=== PATIENT | female | born 1960 | race Two or more races ===

== ENCOUNTER 2016-06-04 14:49 | Inpatient (IN) | payer SELFPAY ==
[~2016-06-04] VITALS: Ht 157.5 cm; Wt 62.1 kg
--- NOTE | ~2016-06-04 | ER ---
PATIENT'S NAME: [facility] AGE: 56 Y [address] ROOM: [place] [address] LOCATION: GPCU ADMIT DATE: 06/04/2016 ER/Outpatient Report DISCHARGE DATE: FAMILY PHYSICIAN: PHYSICIAN, NO ATTENDING PHYSICIAN: Ej CROSS Admission date and time documented on the medical record. I saw the patient at 1500 hours. CHIEF COMPLAINT: Mid anterior chest pain. HISTORY OF PRESENT ILLNESS: This patient is a 56-year-old female who about 30 minutes prior to admission to the emergency room was walking in the house, developed mid anterior chest pain. The chest pain was nonradiating. She had some shortness of breath. She had pain with deep inspiration. She did not get diaphoretic. Did get a little nauseated and had no vomiting. Brought to the emergency room by paramedics by ambulance for evaluation. On arrival, her pain was a 6/10. Continued to have the mid substernal chest pain. Palpation of the anterior chest stimulated her chest pain. No back pain. No abdominal pain. No nausea, vomiting, diarrhea, or urinary complaints. No lightheadedness, dizziness, syncope, or near syncope. No fall or trauma. Did have a recent upper respiratory infection. No headache; eyes ears, nose, throat, neck, or spine pain. No joint or muscle swelling, redness, or pain. No skin eruptions or rash. No history of neuro changes or psych issues. Does have a history of spg-emzwjgj-yafrqlezc diabetes mellitus. HOME MEDICATIONS: See attached medication list. ALLERGIES: NONE. SOCIAL HISTORY: Nonsmoker and nondrinker. SIGNIFICANT PAST MEDICAL HISTORY: Dyslipidemia, gastroesophageal reflux, and tvy-vnaeovg-xjrekpbqz diabetes mellitus. REVIEW OF SYSTEMS: All systems reviewed by me are negative with the exception of those discussed in the history of present illness. PATIENT'S NAME: [facility] AGE: 56 Y [address] ROOM: [place] [address] LOCATION: GPCU ADMIT DATE: 06/04/2016 ER/Outpatient Report DISCHARGE DATE: FAMILY PHYSICIAN: PHYSICIAN, NO ATTENDING PHYSICIAN: Ej CROSS PHYSICAL EXAMINATION: VITAL SIGNS: Temperature 98.3 tympanic, pulse 100, respirations 16, blood pressure 162/86, and O2 saturation on room air is 97%. [place] Coma Scale was 15. HEENT: Head: Normocephalic. No abrasion, contusion, laceration, or swelling of scalp or face. Eyes: Extraocular muscles intact. PERRL. Ears: Clear TMs bilaterally. Nose and Throat: Clear. Mucous membranes moist. Teeth and jaw intact. NECK: No nuchal rigidity. No thyromegaly or cervical adenopathy. No tenderness. SPINE: Nontender. No deformity. LUNGS: Clear. Good air flow. No rales, rhonchi, or wheezes. HEART: Regular. Pulses are palpable. The patient has tenderness to palpation across her anterior chest wall reproduces her pain. ABDOMEN: Soft, nondistended, nontender. Good bowel tones. No organomegaly or abnormal mass palpable. No CVA tenderness. EXTREMITIES: Without peripheral edema, cyanosis, or deformity. NEUROVASCULAR: Intact. SKIN: Clear. No skin eruptions or rash. DIAGNOSTIC DATA: EKG x2 showed sinus rhythm, though with some inferior changes, age undetermined. No arrhythmia. No other ischemic changes. Krqse-dt-yffg cardiac enzymes were normal x2 2 hours apart. CPK was normal x2 2 hours apart. Sedimentation rate was normal at 16. PTT was 26, pro-time is 9.6 with [place] 0[place] [address], 58 segs, 33 lymphs, 5 monos, 2 eos, 1 baso; hemoglobin is 14.3, hematocrit 42.4, platelet count 309,000. Procalcitonin was less than 0.05. Venous pH was 7.46. Lactate was 5.1. Serum ketones were negative. D-dimer was 0.3. CMS was normal except for an elevated glucose of 325, magnesium 1.8. CRP was 0.36. ProBNP was less than 30. Chest x-ray showed no acute infiltrate. We will review x-ray with the radiologist. EMERGENCY DEPARTMENT COURSE: I did start the patient on IV nitroglycerin drip which helped bring her pain down to about 1 to 2 over 10. Also gave her morphine 2 mg IV and 4 baby aspirin orally. IMPRESSION: 1. Mid substernal chest pain, nonradiating, etiology uncertain, but suggestive of unstable angina. 2. Insulin-dependent diabetes mellitus. 3. Gastroesophageal reflux. 4. Dyslipidemia. PATIENT'S NAME: DYLAN CRUZ [facility] AGE: 56 Y [address] ROOM: [place] [address] [facility] ADMIT DATE: 06/04/2016 ER/Outpatient Report DISCHARGE DATE: FAMILY PHYSICIAN: PHYSICIAN, NO ATTENDING PHYSICIAN: Ej CROSS PLAN: I did discuss the patient with Dr. Carrie Ortez. We will admit the patient to PCU for further evaluation of her cardiac status. Discussion ensued with the patient concerning my findings and recommendations, she understands. Accumulated critical care time, 30 minutes. MD CHRISTIANE HERNANDEZ/miguel /[id number] d: 06/04/16 2318 t: 06/05/16 0612, OUTPATIENT REPORT
--- NOTE | ~2016-06-04 | CON ---
PATIENT'S NAME: [facility] AGE: 56 Y [address] ROOM: [place] [id number] LOCATION: GPCU ADMIT DATE: 06/04/2016 Consultation DISCHARGE DATE: 06/06/2016 FAMILY PHYSICIAN: PHYSICIAN, NO ATTENDING PHYSICIAN: Carey Pagan REFERRING PHYSICIAN: Bhargav Lane MD REFERRING PHYSICIAN: Dr. Patino. HISTORY OF PRESENT ILLNESS: This is a 56-year-old female with a history of diabetes mellitus. She was admitted to the emergency room after experiencing sudden onset of severe chest discomfort and syncope. Over the past 2 months, she has had 3 episodes of similar chest pain with presyncopal episodes, but this is the first time she passed out. It was witnessed by her son, who reports that she did not have any tonic or clonic movement, and there was no loss of bowel or bladder. The patient has been complaining of shortness of breath with activity as well as increased fatigue. She has mild orthopnea, PND, and reports that she can feel some palpitation. She complains of increased fatigue. PAST MEDICAL HISTORY: Hyperlipidemia and diabetes mellitus. PAST SURGICAL HISTORY: Positive for cholecystectomy. ALLERGIES: NONE TO MEDICATION. CURRENT MEDICATIONS: 1. Glimepiride 2 mg daily. 2. Metformin 1000 mg b.i.d. 3. Lovastatin 20 mg daily. 4. Amitriptyline 10 mg daily. FAMILY HISTORY: Father had coronary artery disease. Mother had diabetes mellitus. 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 She has never smoked and denies any alcohol use. REVIEW OF SYSTEMS: GENERAL: She complains of fatigue. HEAD: No history of headache. PATIENT'S NAME: [facility] AGE: 56 Y [address] ROOM: [address] [address] LOCATION: GPCU ADMIT DATE: 06/04/2016 Consultation DISCHARGE DATE: 06/06/2016 FAMILY PHYSICIAN: PHYSICIAN, NO ATTENDING PHYSICIAN: Carey Pagan EYES: No blurred vision or double vision. EARS: No problems with hearing. NOSE: No epistaxis or rhinorrhea. MOUTH: No gingival bleeding. THROAT: Denies sore throat, hoarseness, or difficulty swallowing. PULMONARY: Denies cough or hemoptysis. GASTROINTESTINAL: Negative for nausea, vomiting, or diarrhea. No melena or hematochezia. GENITOURINARY: Positive for frequent urination. No problems with burning with urination. No history of kidney stones or urinary tract infection. MUSCULOSKELETAL: No complaints of arthralgias or myalgias. NEUROLOGIC: She denies numbness or tingling in the upper or lower extremities. PHYSICAL EXAMINATION: VITAL SIGNS: She is 5 feet 2 inches, weighs 139, her blood pressure is 140/98, heart rate 80, regular sinus rhythm. SKIN: Warm, dry, and pink. HEENT: Pupils equal, round, and react briskly. NECK: Soft and supple. No lymphadenopathy. No thyromegaly. JVD is flat. LUNGS: Sounds are clear anteriorly and posteriorly. There is no tenderness noted on palpation. CV: Regular with a normal S1 and S2 without murmur. ABDOMEN: Soft. Bowel sounds are present. EXTREMITIES: Show no peripheral edema. LABORATORY DATA: Hemoglobin was 14.3, white count 10.1, cardiac enzymes were negative x4. BUN was 16, creatinine 0.8, sodium 136, potassium 3.7. Magnesium was 1.8. Her hemoglobin A1c was 12.8. Cholesterol 159, triglycerides were 309, HDL 39, LDL was 59. ASSESSMENT: 1. Atypical chest pain. We will plan on a stress test today. 2. Fatigue. We will check a TSH. 3. Hyperlipidemia. She will continue current statin therapy. 4. Diabetes mellitus. She will continue to follow up with the hospitalist. The assessment and plan, history of present illness, and physical exam are per Dr. Lane. Further recommendations will be forthcoming once we get the report of the stress test. HUMZA MICHEL APRN FOR BHARGAV LANE MD PATIENT'S NAME: SIDDHARTH DÍAZ [facility] AGE: 56 Y [address] ROOM: [place] [address] LOCATION: GPCU ADMIT DATE: 06/04/2016 Consultation DISCHARGE DATE: 06/06/2016 FAMILY PHYSICIAN: ADITYA DANIEL ATTENDING PHYSICIAN: Carey Pagan TGP/modl /[id number] d: 06/06/16 2143 t: 06/29/16 0920, CONSULTATION REPORT
--- NOTE | ~2016-06-04 | ECHO ---
Transthoracic Echocardiography Report (TTE) Demographics Patient Name SIDDHARTH DÍAZ, Date of Study 06/05/2016 DYLAN Patient Number [id number] Visit Number [id number] Date of 1960 Room Number G6307 Accession Number [id number] Gender Female Age 56 year(s) Referring Carey Pagan Swatch Folder Yordy Castellano Physician RVT Physician Interpreting Celeste Durant Machine Whitener Physician Supervising Ordering Physician Carey Pagan MD/MLP Nurse Stress Backend Tester Conclusions Contractility Score Summary Normal Left Ventricular contractility was noted. Summary The estimated left ventricular ejection fraction is 55-60%. Mild concentric left ventricular hypertrophy. Diastolic assessment reveals Grade I diastolic dysfunction. IVC not visualized due to poor subcostal window. Possible trivial pericardial effusion. Procedure Type of Study TTE procedure:2D Echocardiogram, M-Mode, Doppler , Color Doppler. Procedure Date Date: 06/05/2016 Start: 07:34 AM Study Location: Inpatient Portable Technical Quality: Adequate visualization Indications:Chest pain. Appropriate Use Criteria: 9 Patient Status: Routine HR: 73 bpm M-Mode/2D Measurements LV Diastolic Dimension: 3.7 cm LV Systolic Dimension: 2.57 cm LV Septum Diastolic: 1.46 cm LV PW Diastolic: 1.21 cm AO Root Dimension: 2 cm Cardiac Output: 3.52 l/min AV Cusp Separation: 1.6 cm RV Diastolic Dimension: 2.16 cm LVOT: 1.9 cm LVOT VTI: 17 cm RV Base: 3.06 cm LV Stroke volume: 48.18 ml RV Length: 5.06 cm TAPSE: 2 cm TDI-S': 11.3 cm/s Doppler Measurements AV Peak Velocity: 1.11 m/s MV Peak E-Wave: 0.75 m/s AV Peak Gradient: 4.93 mmHg MV Peak A-Wave: 1 m/s AV Mean Gradient: 3 mmHg MV E/A Ratio: 0.75 LVOT Peak Velocity: 0.79 m/s MV P1/2t: 68 msec TR Gradient:13.69 mmHg PV Peak Velocity: 0.71 m/s PV Peak Gradient: 2.02 mmHg E' Septal Velocity: 0.06 m/s A' Septal Velocity: 0.1 m/s E' Lateral Velocity: 0.09 m/s A' Lateral Velocity: 0.13 m/s Findings Left Ventricle Mild concentric left ventricular hypertrophy. Diastolic assessment reveals Grade I diastolic dysfunction. Right Ventricle Normal right ventricle structure and function. Left Atrium Normal left atrial size. Right Atrium IVC not visualized due to poor subcostal window. Mitral Valve Normal mitral valve structure and function. Aortic Valve Normal aortic valve structure and function. Tricuspid Valve Trivial tricuspid regurgitation by color Doppler. Pulmonic Valve Normal pulmonic valve structure and function. Pericardial Effusion Possible trivial pericardial effusion. Miscellaneous Visualized portions of the aortic root and ascending aorta appear normal in size. Pleural Effusion No evidence of pleural effusion. Contractility Score LV regional wall motion:(0-Non visualized 1-Normal 2-Hypokinesis 3-Akinesis 4-Dyskinesis 5-Aneurysm) Signature dtt: Bhargav Alonso (cardio) dtd: 06/05/16 0734 Physician Self Edit
--- NOTE | ~2016-06-04 | HP ---
[facility] 56 [facility] [address] ROOM: [place] [address] LOCATION: GPCU ADMIT DATE: 06/04/2016 History & Physical DISCHARGE DATE: FAMILY PHYSICIAN: PHYSICIAN, NO ATTENDING PHYSICIAN: Ej CROSS DATE OF SERVICE: CHIEF COMPLAINT: Chest pain. HISTORY OF PRESENT ILLNESS: The patient is a 56-year-old female with past medical history of diabetes mellitus type 2, hyperlipidemia, who presents here with chest pain. The patient reports that around 2:00 p.m. this morning she felt substernal chest pain which she describes as pressure-like, substernal in location, associated with shortness of breath and nausea, and radiating to her right upper extremity. The patient rated the pain 10/10 during that episode. The patient went to her nephew's room to tell him about her symptoms and was found to have syncope. According to her nephew, the patient came into his room opened and had a sudden fall and was unresponsive for a few minutes. The patient denies any generalized tonic-clonic shaking, urinary and bladder incontinence. The patient was able to regain her consciousness and was brought here via EMS for further workup. The patient continued to have chest pain in the emergency department and was given nitroglycerin with adequate improvement of symptoms. The patient was started on nitroglycerin drip, now currently chest pain-free. The patient denies having similar symptoms in the past. The patient denies fever, chills, abdominal pain, vomiting, diarrhea, headache, visual change, and meningismus sign. The patient is a Georgian-speaking patient. Supply Aide was used during interview. PAST MEDICAL HISTORY: Hyperlipidemia and diabetes mellitus type 2. SURGICAL HISTORY: Cholecystectomy. FAMILY HISTORY: Mother has a history of diabetes mellitus and father had coronary artery disease. SOCIAL HISTORY: PAT[facility]: [facility] AGE: 56 Y [address] 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 She denies smoke. She denies use of alcohol. ALLERGIES: NO KNOWN DRUG ALLERGIES. MEDICATION: 1. Glimepiride 2 mg. 2. Metformin 1000 mg b.i.d. 3. Lovastatin 20 mg. 4. Amitriptyline 10 mg. REVIEW OF SYSTEMS: All systems reviewed, all negative except what is stated in the HPI. PHYSICAL EXAMINATION: VITAL SIGNS: Afebrile, blood pressure 149/110, heart rate 96, and saturating 100% on room air. GENERAL APPEARANCE: The patient is alert and oriented, in no acute distress. HEENT: Head: Normocephalic, atraumatic. Eyes: Extraocular muscles intact. Sclerae nonicteric. Nose: No nasal discharge. NECK: No JVD. Supple. CHEST: Clear to auscultation bilaterally. Upon palpation of the chest wall, the patient has some reproducible chest pain. HEART: Tachycardic. No murmurs, rubs, or gallops heard. ABDOMEN: Soft, nontender, nondistended. Bowel sounds present. EXTREMITIES: No edema. SKIN: Warm to touch. [employer] OFFICER: Alert and oriented. Motor and sensory grossly intact. LABORATORY DATA: D-dimer 0.3. Lactate 5.1. BUN of 16, creatinine of 0.8, blood glucose of 325. Troponin times 2 negative. ProBNP less than 30. White blood cell count of 10.1, hematocrit of 42.4, hemoglobin of 14.3, and platelet of 309. EKG: Normal sinus rhythm, Q-waves seen in II, III, and aVF. ASSESSMENT AND PLAN: The patient is a 56-year-old female who presents to our emergency department with typical chest pain and syncope. 1. Unstable angina. The patient presented with typical chest pain and associated with chest pressure, substernal, associated with shortness of breath, nausea, and some atypical presentation of pleuritic pain and reproducible chest pain. However, due to the patient's risk factor of family history; diabetes mellitus; hyperlipidemia; and chest pain, [facility] 56 [facility] [address] ROOM: [place] [address] [facility] ADMIT DATE: 06/04/2016 History & Physical DISCHARGE DATE: FAMILY PHYSICIAN: PHYSICIAN, NO ATTENDING PHYSICIAN: Ej CROSS actually resolving with nitroglycerin drip, we will admit the patient and we will treat the patient as unstable angina. The patient currently on nitroglycerin drip. We will start heparin drip. Before we start heparin drip, we will acquire a CT head as the patient had syncope and had a fall, just want to rule out if there was any head bleeding. If the CT head normal, we will continue with heparin drip. We will start the patient on Lopressor 25 mg b.i.d. Continue nitroglycerin drip. We will change lovastatin to Lipitor 80 mg daily. We will trend troponin x3. Keep the patient on tele monitor. Discussed case with Dr. Alonso with Cardiology to keep the patient n.p.o., and to assess whether the patient needs stress test or coronary angiogram tomorrow. 2. Diabetes mellitus type 2. We will hold metformin currently, and we will start the patient on sliding scale and start 16 units of detemir at nighttime. 3. Hyperlipidemia. We will change lovastatin to high-dose Lipitor. 4. Syncope. Initial workup including EKG and troponin was unremarkable. We will acquire CT head. The patient will have cardiac workup during her stay. D-dimer is negative. We will keep the patient on tele monitor to evaluate for arrhythmia and acquire echocardiogram to further investigate the structural disease. We will follow the patient closely clinically. I personally reviewed the patient's medical record including but not limited to, blood work and radiology report. Total spent with the patient is greater than 70 minutes, more than 50% of the time spent in direct patient care and patient consultation. The case was reviewed with the patient and Cardiology. All questions were answered satisfactorily. We will admit the patient for unstable angina. MD DAVID BUENO/miguel /[id number] D: 052 T: 033 HISTORY & PHYSICAL
--- NOTE | ~2016-06-04 | ER ---
PATIENT'S NAME: DYLAN CRUZ [facility] AGE: 56 Y [address] ROOM: [address] [address] LOCATION: [facility] ADMIT DATE: 06/04/2016 ER/Outpatient Report DISCHARGE DATE: FAMILY PHYSICIAN: PHYSICIAN, NO ATTENDING PHYSICIAN: Ej CROSS ADDENDUM: Dr. Carrie Ortez called back and wanted the hospitalist to take this patient's case. I did talk with Dr. Ybarra and he is going to come down to see the patient and admit the patient to the hospital for further cardiac workup. MD CHRISTIANE HERNANDEZ/miguel /[id number] d: 06/04/16 2350 t: 06/05/16 0614, OUTPATIENT REPORT
--- NOTE | ~2016-06-04 | ESTC ---
Cardiac Perfusion Imaging Demographics Patient Name SIDDHARTH DÍAZ Gender Female DYLAN Patient Number [id number] Race Other Visit Number [id number] Ethnicity or Corporate ID Room Number G6307 Accession Number [id number] Height 62 inches Date of 1960 Weight 139.3 pounds Interpreting Celeste Durant MD Date of study 06/05/2016 Physician Supervising /MARIPOSA Mcdaniel NM Technologist Nova Farmer APRN Ordering Physician Celeste Durant MD Stress plant and maintenance technician Stress ECG Reading Claudia Mcdaniel Nurse Fannie Wilson RN Physician MATT Melchor RN Medications Reviewed with Patient prior to Procedure. Procedure Procedure Type: Nuclear Stress Test:Pharmacological, Lexiscan, Cardiolite Stress Test Procedure Start time: 06/05/2016 09:20 Indications: Chest pain. Risk Factors The patient risk factors include:former tobacco use, family history of premature CAD, orally-treated diabetes mellitus, last creatinine: 0.8 mg/dl, dyslipidemia and ( years not smokin). Conclusions Summary Cardiolite SPECT images demonstrate homogenous uptake of radioactive tracer without inducible reversible defect and no underlying fixed defect. Normal TID upon gross inspection. Normal left ventricular systolic function without inducible wall motion abnormalities. LVEF was 85% Stress Protocols Resting ECG RSR without ST or T wave changes. Pre-stress physical exam: Edy Taylor APRN Stress Protocol:Pharmacologic Peak HR:75 bpm HR response: Appropriate Peak BP:109/68 mmHg BP response: Appropriate Predicted HR: 164 bpm HR/BP product:8175 % of predicted HR: 46 Reason for termination:Infusion complete ECG Findings No ECG changes suggestive of ischemia. Arrhythmias No rhythm abnormality. Symptoms Nausea. Stress Interpretation Appropriate hemodynamic response to Lexiscan. No significant ST-T wave changes with Lexiscan. ECG portion is negative for ischemia by diagnostic criteria. Stress supervision and interpretation provided by Ailyn Taylor APRN . Imaging Results Summed scores - Summed stress score: 12 - Summed rest score: 4 - Summed difference score: 8 Stress ejection Ejection fraction:83 % EDV :53 ml ESV :9 ml Stroke volume :44 ml LV mass :101 gr Imaging Protocols Rest Stress Isotope:Tc99m Sestamibi IV Isotope: Tc99m Sestamibi IV Isotope dose:9.8 mCi Isotope dose:29.9 mCi Date:06/05/2016 09:05 Date:06/05/2016 10:27 Technique: SPECT Technique: Gated Supine SPECT Supine IV remains in place after procedure. Scan Time:30 minutes post injection Scan Time:45-60 minutes post injection Procedure Medications - Regadenoson (Lexiscan) 0.4 mg IV over 10-15 sec. I.V. 0.4 mg. Medical History Admission Data Admission date: 06/04/2016 Admission Time: 18:43 Hospital Status: Inpatient. Signatures dtt: Bhargav Alonso (cardio) dtd: 06/05/16 0920 Physician Self Edit
[2016-06-04 15:05] LABS: LACTATE 5.1 mEq/L (0.50-1.60)
[2016-06-04 15:07] LABS: BASOPHIL # 0.1 K/uL (0.0-0.2); BASOPHIL % 0.6 %; EOSINOPHIL # 0.2 K/uL (0.0-0.5); EOSINOPHIL % 2.4 %; HEMATOCRIT 42.4 % (33.0-46.0); HEMOGLOBIN 14.3 g/dL (10.0-15.0); IMMATURE GRANULOCYTE # 0.1 K/uL (0.0-0.3); IMMATURE GRANULOCYTE % 0.8 %; LYMPHOCYTE # 3.4 K/uL (0.8-4.0); LYMPHOCYTE % 33.4 %; MCH 28.1 pg (27.0-34.0); MCHC 33.7 gm/dL (32.0-36.5); MCV 83.5 fl (83.0-98.0); MONOCYTE # 0.5 K/uL (0.0-1.0); MPV 10.8 fl (9.4-12.4); NEUTROPHIL # (ANC) 5.9 K/uL (1.8-7.8); NEUTROPHIL % 57.8 %; NRBC % 0 /100WBC (0-0.00); PLATELET COUNT 309 K/uL (150-450); RBC 5.08 M/uL (3.50-5.50); RDW-CV 12.7 % (11.9-14.6); WBC 10.1 K/uL (4.0-11.0)
[2016-06-04 15:17] LABS: INR - (THERAPEUTIC) 0.92 (0.92-1.07); PROTIME 9.6 SECONDS (9.8-11.4); PTT 26 SECONDS (25-32)
[2016-06-04 15:25] LABS: ALBUMIN 3.8 gm/dL (3.5-5.0); ALK PHOS 114 IU/L (33-138); ALT 61 IU/L (12-78); ANION GAP 14.7 (10.0-19.0); AST 27 IU/L (10-40); BLOOD UREA NITROGEN 16 mg/dL (6-24); CALCIUM 8.8 mg/dL (8.5-10.5); CHLORIDE 103 mMol/L (96-110); CO2 22 mMol/L (22-32); CPK 35 IU/L (21-215); CREATININE 0.8 mg/dL (0.5-1.1); ESTIMATED GFR (MDRD EQUATION) > 60; MAGNESIUM 1.8 mg/dL (1.8-2.6); POTASSIUM 3.7 mMol/L (3.7-5.1); SODIUM 136 mMol/L (135-145); TOTAL BILIRUBIN 0.3 mg/dL (0.0-1.5); TOTAL PROTEIN 7.6 g/dL (6.0-8.4)
[2016-06-04 17:26] LABS: CPK 36 IU/L (21-215)
[2016-06-04] MEDS ORDERED: ELAVIL10 MG PO (20:34)
[2016-06-04] MEDS ORDERED: AMARYL2 MG PO (20:34)
[2016-06-04] MEDS ORDERED: MEVACOR20 MG (20:34)
[2016-06-04] MEDS ORDERED: GLUCOPHAGE500 MG PO (20:35)
[2016-06-04] MEDS ORDERED: GLUCOPHAGE1000 MG PO (20:36)
[2016-06-04] MEDS ORDERED: ADVIL200 MG (20:36)
[2016-06-04 22:24] LABS: CPK 31 IU/L (21-215)
--- NOTE | 2016-06-05 02:07 | NUR ---
Patient brought to floor per cart by residential treatment staff. Patient is alert and oriented. She does not speak any Lao. Upon arrival to the room patient has no co chest pain and is on room air. Heparin drip was started in ER and is running at 700units, nitro is running at 10mcg. Family is present at bedside. Patient comes in today with chest pain that started earlier this afternoon, patient also states that she has been quite dizzy today. Patient also admited having a fall today. IV present to right AC.
[2016-06-05 04:14] LABS: CPK 51 IU/L (21-215)
--- NOTE | 2016-06-05 05:25 | NUR ---
Significant Event: VSS, PT AFEBRILE. CONTINUES ON RA WITH SATS IN THE LOW TO MID 90'S. PT DENIES ANY SHORTNESS OF BREATH OR CHEST PAIN THIS SHIFT. NITRO SHUT OFF PER MD ORDER IF SBP WAS LESS THAN 120. HEPARIN RUNNING AT 800 UNITS WITH NEXT PTTHP AT 1000. FAMILY AT BEDSIDE AND TRANSLATE FOR PATIENT. UP TO BATHROOM WITH 1 ASSIST, PT DOES GET DIZZY UPON STANDING. NS RUNNING AT 100ML/HR-TURN OFF AFTER THIS BAG. Follow up:
[2016-06-05 11:30] LABS: CPK 40 IU/L (21-215)
--- NOTE | 2016-06-05 12:19 | NUR ---
Diabetes consult: Patient with Type II diabetes and A1C at 12.8%. The patient reports seeing MATT Hong last week and having her metformin increased. In addition, to metformin the patient takes amaryl at home. The patient denies missing doses and reports having had diabetes education in the patient. The patient has several family members at bedside, and a grandson helps interpret. The grandson was given the diabetes survival skill check list and encouraged to ask the patient the questions on the questionnaire. Will return tomorrow to review the checklist and teach to knowledge deficits. Patient was informed of her risk of developing diabetes complications with an elevated A1C. She was also informed that she is being given a long acting insulin which may need to continue upon dismissal. Will continue to follow.
--- NOTE | 2016-06-05 15:54 | NUR ---
Significant Event:A/O x 3, cooperative with cares. VSS. Was NPO this am for lexiscan, once returned she c/o chest pain but it was worse when lying flat. Gave protonix and tylenol with relief. Up to Bathroom with 1 assist. Gets dizzy when standing. Family at bedside and will translate as needed. Heparin running at 900 units/hr, next PTTHP at 1745. ACHS accuchecks with mild sliding scale. PIV to R) AC infusing Heparin and NS at TKO. Follow up:Waiting for lexiscan report and then determine next plan of care.
--- NOTE | 2016-06-06 04:35 | NUR ---
A/O. VSS. DENIES PAIN. DENIES CHEST PAIN. DIABETIC ED TO SEE TODAY. HEPARIN AT 900 UNITS/HR. POSSIBLE D/C TODAY.
--- NOTE | 2016-06-06 09:00 | NUR ---
Diabetes consult: Patient is being sent home on insulin. She has no insurance and cannot afford Levemir. Discussed treatment with Dr. Fletcher and patient will be placed on nph 9 units twice daily. Patient was given an insulin voucher for five free pens. She was also given a sample of pen needles. The patient reports having testing supplies at home. The patient was instructed on how to use the insulin pen. The timing, dose, storage and rotation of insulin sites was discussed. Hyper and hypoglcyemia treatment and prevention reviewed. Son is present at bedside and interpretting. The patient was able to redemonstrate use of the device without difficulty. She denies any questions or concerns. Dr. Fletcher [facility] the [facility]. Appointment scheduled for 06/15/2016. Patient is to see Dr. Canales on June 12.
[2016-06-06] MEDS ORDERED: ASPIRIN (CHILDR81 MG PO (11:08)
[2016-06-06] MEDS ORDERED: LIPITOR80 MG PO (11:10)
[2016-06-06] MEDS ORDERED: LOPRESSOR25 MG PO (11:20)
[2016-06-06] MEDS ORDERED: HUMULIN N100 UNIT/2 SUB-Q (11:27)
--- NOTE | 2016-06-06 12:14 | NUR ---
DISCHARGE SUMMARY: Patient discharged to home at 1201 with son, [id number], and significant other. Pt VSS. BP 126/69, HR 77, O2 97% RA, temp 98.3. Pt A&Ox3. Education regarding new mediction and diabetic management was provided-pt and family confirms understanding. 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 Supply Clerk contact information provided if needed in future. Follow-up appointments discussed-pt and family confirm understanding. Pt denies dizziness and/or chest pain thorughout shift and at time of dismissal. Right AC PIV was D/C at 1153. Final tele strip ran. Pt and family denies any futher questions/concerns.
== END 2016-06-06 12:25 | disposition disaster alternative care site (69) | DRG 311 ==
LOC: GMED 14:49 → GPCU 18:43
PROVIDERS: Emergency Medicine; ADMIT Internal Medicine
DX: I20.0 Unstable angina (principal); E11.9 Type 2 diabetes mellitus without complications; E78.5 Hyperlipidemia, unspecified; K21.9 Gastro-esophageal reflux disease without esophagitis; Z87.891 Personal history of nicotine dependence; Z23 Encounter for immunization
CPT/HCPCS: A9500; J1644; J2270; J2785; J7030; J7050

== ENCOUNTER → 2016-06-15 | Outpatient (CLI) | payer SELFPAY ==
[~2016-06-15] MED LIST: ADVIL200 MG; AMARYL2 MG PO; ASPIRIN (CHILDR81 MG PO; ELAVIL10 MG PO; GLUCOPHAGE1000 MG PO; GLUCOPHAGE500 MG PO; HUMULIN N100 UNIT/2 SUB-Q; LIPITOR80 MG PO; LOPRESSOR25 MG PO; MEVACOR20 MG
== END | disposition disaster alternative care site (69) ==
LOC: GDIC 10:36
DX: E11.65 Type 2 diabetes mellitus with hyperglycemia (principal)
CPT/HCPCS: G0108

== ENCOUNTER → 2016-07-18 | Outpatient (CLI) | payer SELFPAY | END | disposition disaster alternative care site (69) | LOC: GDIC 11:24 | DX: E11.65 Type 2 diabetes mellitus with hyperglycemia (principal) | CPT/HCPCS: G0108 ==